=== PATIENT | male | born 1990 | race Caucasian/White ===

== ENCOUNTER 2023-06-05 00:48 | Emergency (ER) | payer SELFPAY ==
[~2023-06-05] VITALS: Ht 177.8 cm; Wt 88.6 kg
[2023-06-05 00:50] VITALS: TEMP 97.5
[2023-06-05] MEDS ORDERED: Home oxyCODONE/Acetaminophen 5/325 MG #4 TAB/PACK PO ONE (01:30)
[2023-06-05] MEDS ORDERED: Home Amoxicillin/Clavulanate K 875 MG #1 TAB/PACK PO ONE (01:30)
[2023-06-05] MEDS ORDERED: AMOXICILLIN 8751 TAB PO (01:44)
[2023-06-05 01:55] VITALS: BP 171/95; PULSE 45
== END 2023-06-05 01:59 | disposition home or self-care (01) ==
LOC: COL.ER 00:48
DX: K05.30 Chronic periodontitis, unspecified (principal); Z88.2 Allergy status to sulfonamides; Z88.1 Allergy status to other antibiotic agents